=== PATIENT | female | born 1965 | race Caucasian/White ===

== ENCOUNTER → 2021-02-07 | Outpatient (CLI) | payer OTHER ==
--- NOTE | 2021-02-07 20:17 | RAD ---
Bilateral knees standing knees AP view and right knee lateral and sunrise patellar views: Reason for examination: Knee pain. The 3 views of the right knee show no evidence of an acute site of fracture or dislocation. The bone density is normal and no abnormal periosteal reaction is seen. When compared to the AP view of the le ft knee however, there does appear to be moderate narrowing of the medial joint compartment. There is also some soft tissue fullness in the suprapatellar region of the right knee consistent with a small joint effusion. IMPRESSION: Moderate narrowing of the medial joint compartment of the right knee. Soft tissue fullness in the suprapatellar bursal region consistent with a joint effusion at the right knee. Electronically signed by: Karmen Quintana MD (02/07/2021 8:14 PM) MARIJA
== END ==
LOC: RAD 17:08
PROVIDERS: ATTEND Orthopaedic Surgery
DX: M25.461 Effusion, right knee (principal)
CPT/HCPCS: 73560; 73565

== ENCOUNTER → 2021-03-14 | Outpatient (CLI) | payer OTHER ==
--- NOTE | 2021-03-15 14:24 | RAD ---
EXAMINATION: XR SHOULDER_LEFT 2+ VIEWS CLINICAL HISTORY: Left shoulder pain TECHNIQUE: XR SHOULDER_LEFT 2+ VIEWS Number of Images/Views: 3 COMPARISON: None FINDINGS: Mild glenohumeral joint space narrowing. Moderate hypertrophic acromioclavicular degenerative changes . No acute fracture. Acromiohumeral interval maintained. IMPRESSION: Mild/moderate degenerative changes as described. Electronically signed by: Robert Miranda DO (03/15/2021 2:22 PM) ANNALISA
== END ==
LOC: DXRAD 16:12
PROVIDERS: ATTEND Orthopaedic Surgery
DX: M19.012 Primary osteoarthritis, left shoulder (principal)
CPT/HCPCS: 73030